=== PATIENT | female | born 1980 | race Caucasian/White ===

== ENCOUNTER 2021-02-27 08:01 | Outpatient (CLI) | payer OTHER | END 2021-02-27 08:02 | disposition home or self-care (01) | LOC: CSHLAB 08:01 | PROVIDERS: ATTEND Obstetrics & Gynecology | DX: Z01.812 Encounter for preprocedural laboratory examination (principal); Z20.822 Contact with and (suspected) exposure to COVID-19; T83.711A Erosion of implanted vaginal mesh to surrounding organ or tissue, initial encounter | CPT/HCPCS: 85027; 86850; 86900; 86901; 87635; U0003; U0005 ==

== ENCOUNTER 2021-03-04 10:41 | Day surgery (SDC) | payer OTHER ==
[2021-02-27 09:46] LABS: Hemoglobin 11.4 g/dL (12.0-15.5); Mean Corpuscular HGB CONC 31.8 g/dL (32.0-36.0); Mean Corpuscular Hemoglobin 31.5 pg (27.0-33.0); Mean Corpuscular Volume 98.9 fl (81.6-98.3); Mean Platelet Volume 11.5 fl (7.4-10.4); Platelet Count 257 10x3/uL (150-450); RBC Distribution Width 15.3 % (11.5-14.5); Red Blood Cell (RBC) Count 3.62 10x6/uL (3.90-5.03); White Blood Cell (WBC) Count 11.9 10x3/uL (3.5-10.5)
[2021-02-27 13:45] LABS: SARS-CoV-2 PCR by NAA Not Detected (NotDetected)
[2021-02-28 13:12] VITALS: BMI 28.3
[2021-03-04] MEDS ORDERED: Scopolamine 1.5 mg/72 hour Patch ONE (12:15)
[2021-03-04] MEDS ORDERED: Lidocaine 1% MPF 2 ML VIAL ONE (12:28)
[2021-03-04] MEDS ORDERED: Midazolam HCl 2 mg/2 ml Vial ONE (12:29)
[2021-03-04] MEDS ORDERED: Lidocaine 1% w/Epinephrine 1:100K 20 ML VIAL ONE (13:41)
[2021-03-04] MEDS ORDERED: Lidocaine 2% w/Epinephrine 1:200K 20 ML VIAL ONE (13:41)
[2021-03-04] MEDS ORDERED: Fentanyl 100 MCG/2 ML VIAL ONE (13:49)
[2021-03-04] MEDS ORDERED: PROPOFOL 20 ML ONE (13:49)
== END 2021-03-04 16:00 | disposition home or self-care (01) ==
LOC: CSHSDC 10:41
PROVIDERS: ATTEND Obstetrics & Gynecology
PROC: 0UP Female Reproductive System, Removal (ICD-10-PCS; principal; 2021-03-04)
DX: T83.711A Erosion of implanted vaginal mesh to surrounding organ or tissue, initial encounter (principal); R03.0 Elevated blood-pressure reading, without diagnosis of hypertension; M79.7 Fibromyalgia; Z79.899 Other long term (current) drug therapy; Z91.040 Latex allergy status; Z90.710 Acquired absence of both cervix and uterus; Z98.84 Bariatric surgery status; Z20.822 Contact with and (suspected) exposure to COVID-19
CPT/HCPCS: 85027; 86850; 86900; 86901; 87635; J0690; J2250; J2704; J3010; U0003; U0005

== ENCOUNTER 2024-08-15 12:03 | Outpatient (CLI) | payer OTHER | END 2024-08-15 12:04 | disposition home or self-care (01) | LOC: CSHMAMMO 12:03 | PROVIDERS: ATTEND Student in an Organized Health Care Education/Training Program | DX: Z12.31 Encounter for screening mammogram for malignant neoplasm of breast (principal) | CPT/HCPCS: 77067 ==